=== PATIENT | male | born 1990 | race Caucasian/White ===

== ENCOUNTER 2022-09-17 16:06 | Inpatient (IN) | payer OTHER ==
[2022-09-17] MEDS ORDERED: Ondansetron ODT 4 MG TAB PO PRN (17:09)
[2022-09-17] MEDS ORDERED: Cyclobenzaprine 10 MG TAB PO PRN (17:09)
[2022-09-17] MEDS ORDERED: traMADol HCl 50 MG TAB PO PRN (17:09)
[2022-09-17] MEDS ORDERED: hydrALAZINE 20 MG/ML VIAL SLOW IVP PRN (17:11)
[2022-09-17] MEDS ORDERED: TETANUS, DIPHTHERIA TOX,ADULT (TDVAX) 0.5 ML VIAL IM ONE (17:11)
[2022-09-17] MEDS ORDERED: Ketorolac Tromethamine 30 MG/ML VIAL ONE (17:41)
[2022-09-17] MEDS ORDERED: Morphine 4 MG/ML VIAL ONE (17:41)
[2022-09-17 17:48] LABS: #Eosinphils 0.1 thou/uL (0.0-0.7); #Lymphocytes 1.9 thou/uL (1.20-3.40); #Monocytes 0.9 thou/uL (0.11-0.59); #Neutrophils 10.4 thou/uL (1.40-6.50); %Basophils 0.3 % (0.0-1.0); %Eosinophils 0.9 % (0.0-10.0); %Monocytes 7.1 % (0.0-10.0); %Neutrophils 77.8 % (42.0-75.0); Hemoglobin 15.2 g/dL (14.0-18.0); Mean Corpuscular Hemoglobin 27.8 pg (27.0-31.0); Mean Corpuscular Volume 81.8 fl (78.0-98.0); Mean Platelet Volume 7.4 fL (7.4-10.4); Platelet Count 274 10x3/uL (130-400); RBC Distribution Width 11.3 % (11.5-14.5); Red Blood Cell (RBC) Count 5.47 mill/uL (4.70-6.10); White Blood Cell (WBC) Count 13.4 10x3/uL (4.8-10.8)
[2022-09-17 18:09] LABS: Anion Gap 14 mmol/L (10-20); BUN (Urea Nitrogen) 12 mg/dL (8.9-20.6); Calc. Creatinine Clearance 0 mL/min (70-130); Calcium 9.6 mg/dL (7.8-10.44); Carbon Dioxide 24 mmol/L (22-29); Chloride 107 mmol/L (98-107); Estimated GFR 79; Glucose 131 mg/dL (70-105); Magnesium 1.9 mg/dL (1.6-2.6); Sodium 141 mmol/L (136-145)
[2022-09-17 18:55] VITALS: BMI 32.8
[2022-09-17] MEDS: traMADol HCl 50 MG TAB PO SCH (20:31)
[2022-09-17] MEDS: Acetaminophen 500 MG TAB PO SCH (20:32)
[2022-09-17] MEDS: Sodium Chloride 0.9% 1,000 ML IV SCH (20:32)
[2022-09-17] MEDS: Sodium Phosphate 30 MMOL in Sodium Chloride 0.9% 250 ML 250 ML IVPB SCH (21:30)
[2022-09-17] MEDS: Famotidine/PF 20 mg/2ml Vial SLOW IVP SCH (21:31)
[2022-09-17] MEDS: Senokot S 8.6-50 MG TAB PO SCH (21:31)
[2022-09-18] MEDS: traMADol HCl 50 MG TAB PO SCH ×5 (00:54→23:26)
[2022-09-18] MEDS: Acetaminophen 500 MG TAB PO SCH ×5 (00:54→23:26)
[2022-09-18] MEDS: Sodium Phosphate 30 MMOL in Sodium Chloride 0.9% 250 ML 250 ML IVPB SCH (00:55)
[2022-09-18] MEDS: Sodium Chloride 0.9% 1,000 ML IV SCH ×2 (03:18→17:42)
[2022-09-18 05:54] LABS: Prothrombin Time 13.9 sec (12.0-14.7)
[2022-09-18 06:12] LABS: Anion Gap 17 mmol/L (10-20); BUN (Urea Nitrogen) 11 mg/dL (8.9-20.6); Calc. Creatinine Clearance 171 mL/min (70-130); Calcium 8.3 mg/dL (7.8-10.44); Carbon Dioxide 17 mmol/L (22-29); Chloride 108 mmol/L (98-107); Estimated GFR 110; Glucose 123 mg/dL (70-105); Potassium 4.6 mmol/L (3.5-5.1); Sodium 137 mmol/L (136-145)
[2022-09-18 07:01] LABS: Bacteria/HPF None Seen HPF (None Seen); Bilirubin Negative (Negative); Blood, Urine Negative (Negative); Clarity Clear (Clear); Glucose, Urine (Dipstick) Normal (Negative); Ketone, Urine Negative (Negative); Leukocyte Negative Leu/uL (Negative); Nitrite Negative (Negative); Protein, Urine (Dipstick) 10 mg/dL (Neg-Trace); RBC/HPF 0-3 HPF (0-3); Specific Gravity, Urine 1.033 (1.002-1.036); Squamous Epithelial 0-3 HPF (0-3); Urobilinogen Normal mg/dL (Less than 2); WBC/HPF 0-3 HPF (0-3); pH, Urine 6.5 (5.0-9.0)
[2022-09-18 08:07] LABS: SARS-CoV-2 NAA Rapid Test Not Detected (NotDetected)
[2022-09-18] MEDS: Senokot S 8.6-50 MG TAB PO SCH ×2 (08:54→21:31)
[2022-09-18] MEDS ORDERED: Polyethylene Glycol 3350 17 GM Packet PO SCH (09:00)
[2022-09-18] MEDS: Famotidine/PF 20 mg/2ml Vial SLOW IVP SCH ×2 (09:00→21:31)
[2022-09-18 09:24] LABS: #Eosinphils 0.1 thou/uL (0.0-0.7); #Lymphocytes 2.3 thou/uL (1.20-3.40); #Neutrophils 4.8 thou/uL (1.40-6.50); %Basophils 0.1 % (0.0-1.0); %Eosinophils 1.5 % (0.0-10.0); %Lymphocytes 27.6 % (21.0-51.0); %Monocytes 11.8 % (0.0-10.0); Hemoglobin 14.5 g/dL (14.0-18.0); Mean Corpuscular HGB CONC 32.5 g/dL (32.0-36.0); Mean Corpuscular Hemoglobin 27.6 pg (27.0-31.0); Mean Corpuscular Volume 84.8 fl (78.0-98.0); Mean Platelet Volume 7.2 fL (7.4-10.4); Platelet Count 239 10x3/uL (130-400); RBC Distribution Width 11.5 % (11.5-14.5); Red Blood Cell (RBC) Count 5.25 mill/uL (4.70-6.10); White Blood Cell (WBC) Count 8.1 10x3/uL (4.8-10.8)
[2022-09-18] MEDS ORDERED: Sodium Chloride 0.9% 100 ML ONE (14:20)
[2022-09-18] MEDS ORDERED: CEFAZOLIN 2 GM VIAL ONE (14:20)
[2022-09-18] MEDS ORDERED: fentaNYL PF 100 MCG/2 ML SYRINGE ONE (14:31)
[2022-09-18] MEDS ORDERED: Midazolam HCl 2 mg/2 ml Vial ONE (14:33)
[2022-09-18] MEDS ORDERED: Dexamethasone 20 MG/5 ML VIAL ONE (14:37)
[2022-09-18] MEDS ORDERED: Ondansetron PF 4 MG/2 ML Vial ONE (14:37)
[2022-09-18] MEDS ORDERED: PROPOFOL 200 MG/20 ML VIAL ONE (14:37)
[2022-09-18] MEDS ORDERED: HYDROmorphone 2 MG/ML VIAL ONE (14:58)
[2022-09-18] MEDS ORDERED: Bupivacaine HCl 0.5%/Epinephrine 1:200,000/PF 30 ml Vial ONE (15:32)
[2022-09-18] MEDS ORDERED: Ondansetron HCl/PF 4 MG/2 ML Vial IVP PRN (15:34)
[2022-09-18] MEDS ORDERED: HYDROmorphone 2 MG/ML VIAL SLOW IVP PRN (15:34)
[2022-09-18] MEDS ORDERED: Promethazine HCl 25 MG/ML VIAL IM PRN (15:34)
[2022-09-18] MEDS ORDERED: Promethazine HCl 25 MG/ML VIAL IVPB PRN (15:34)
[2022-09-18] MEDS: Morphine 4 MG/ML VIAL SLOW IVP PRN ×2 (17:35→19:35)
[2022-09-18] MEDS: Ketorolac Tromethamine 30 MG/ML VIAL IVP SCH (23:25)
[2022-09-19] MEDS: Ketorolac Tromethamine 30 MG/ML VIAL IVP SCH (05:24)
[2022-09-19] MEDS: traMADol HCl 50 MG TAB PO SCH ×2 (05:24→12:21)
[2022-09-19] MEDS: Acetaminophen 500 MG TAB PO SCH ×2 (05:25→12:20)
[2022-09-19 05:49] LABS: #Lymphocytes 1.6 thou/uL (1.20-3.40); %Basophils 0.1 % (0.0-1.0); %Eosinophils 0.2 % (0.0-10.0); %Lymphocytes 16.8 % (21.0-51.0); %Monocytes 10.7 % (0.0-10.0); %Neutrophils 72.1 % (42.0-75.0); Hemoglobin 13.3 g/dL (14.0-18.0); Mean Corpuscular Hemoglobin 27.8 pg (27.0-31.0); Mean Corpuscular Volume 84.4 fl (78.0-98.0); Mean Platelet Volume 7.1 fL (7.4-10.4); Platelet Count 246 10x3/uL (130-400); RBC Distribution Width 11.3 % (11.5-14.5); Red Blood Cell (RBC) Count 4.79 mill/uL (4.70-6.10); White Blood Cell (WBC) Count 9.7 10x3/uL (4.8-10.8)
[2022-09-19 07:18] LABS: Anion Gap 12 mmol/L (10-20); BUN (Urea Nitrogen) 11 mg/dL (8.9-20.6); Calc. Creatinine Clearance 181 mL/min (70-130); Calcium 8.8 mg/dL (7.8-10.44); Carbon Dioxide 25 mmol/L (22-29); Chloride 102 mmol/L (98-107); Estimated GFR 118; Glucose 131 mg/dL (70-105); Magnesium 2.2 mg/dL (1.6-2.6); Phosphorus 3.4 mg/dL (2.3-4.7); Sodium 135 mmol/L (136-145)
[2022-09-19] MEDS ORDERED: Cyclobenzaprine 10 MG TAB PO PRN (07:50)
[2022-09-19] MEDS ORDERED: Senokot S 8.6-50 MG TAB PO SCH (09:00)
[2022-09-19] MEDS ORDERED: Gabapentin 300 MG CAP PO SCH (09:00)
[2022-09-19] MEDS ORDERED: Enoxaparin Sodium 40 MG/0.4 ML SYRINGE SC SCH (09:00)
[2022-09-19] MEDS ORDERED: Polyethylene Glycol 3350 17 GM Packet PO SCH (09:00)
[2022-09-19] MEDS ORDERED: Famotidine 20 MG TAB PO SCH (09:00)
[2022-09-19 12:38] VITALS: BP 118/63; TEMP 98.4
[2022-09-19] MEDS ORDERED: Ibuprofen 200 MG TAB PO SCH (14:00)
== END 2022-09-19 13:35 | disposition home or self-care (01) | DRG 494 ==
LOC: ERS 16:06 → SURG B 17:14
PROVIDERS: ADMIT Surgery; ATTEND Surgery
PROC: 0QSG06Z Reposition Right Tibia with Intramedullary Internal Fixation Device, Open Approach (ICD-10-PCS; principal; 2022-09-18)
DX: S82.291A Other fracture of shaft of right tibia, initial encounter for closed fracture (principal); S82.491A Other fracture of shaft of right fibula, initial encounter for closed fracture; Z20.822 Contact with and (suspected) exposure to COVID-19; W50.1XXA Accidental kick by another person, initial encounter; Y93.66 Activity, soccer; Y92.322 Soccer field as the place of occurrence of the external cause
CPT/HCPCS: 36415; 80048; 81001; 83735; 84100; 85025; 85610; 85730; 96374; 96375; C1713; C1769; G0390; J1100; J1170; J1650; J1885; J2250; J2270; J2405; J2704; J3490; J7050; S0028; U0002